=== PATIENT | female | born 1950 | race Caucasian/White ===

== ENCOUNTER 2019-03-24 09:09 | Observation (INO) | payer MEDICARE ==
[2019-03-24] MEDS ORDERED: NS 0.9% 1000 ML** 1,000 ML IV.FLUID IV ONE (09:33)
[2019-03-24] MEDS ORDERED: Piperacillin/Tazobac ADVAN(*) 3.375 GM in NS 0.9% 100 ML* 100 ML IVPB ONE (09:40)
[2019-03-24 10:18] LABS: ABS Eosinophils 0.1 10^3/ul (0-0.6); ABS Monocytes 0.3 10^3/ul (0-0.8); ABS Neutrophils 3.8 10^3/ul (1.5-7.7); Eosinophil % 1.4 %; Hematocrit 44 % (35-47); Hemoglobin 14.5 g/dL (12.0-16.0); Lymphocyte % 19.2 %; Mean Corpuscular HGB Conc 33 g/dL (31-36); Mean Corpuscular Hemoglobin 31 pg (27-31); Mean Corpuscular Volume 93 fL (80-97); Mean Platelet Volume 8.7 fL (7.4-10.4); Nucleated Red Blood Cells % 0.1; Platelet Count 98 10^3/uL (150-450); Red Blood Count 4.69 10^6 /uL (3.70-4.87); Red Cell Distribution Width 14 % (10-15); White Blood Count 5.2 10^3/uL (3.5-10.8)
[2019-03-24 10:26] LABS: Activated Partial Thrombo Time 35.8 seconds (26.0-38.0); INR 1.09 (0.82-1.09)
[2019-03-24 10:35] LABS: Albumin 3.9 g/dL (3.2-5.2); Calcium 9.3 mg/dL (8.6-10.3); Total Bilirubin 0.7 mg/dL (0.2-1.0)
[2019-03-24 10:42] LABS: Albumin/Globulin Ratio 1.1 (1-3); BUN/Creatinine Ratio 19.2 (8-20); C Reactive Protein 5.43 mg/L (<8.01); EGFR African American 95.6 (>60); Globulin 3.4 g/dL (2-4); Total Protein 7.3 g/dL (6.4-8.9)
[2019-03-24 11:08] LABS: Potassium 4.3 mmol/L (3.5-5.0)
--- NOTE | 2019-03-24 11:11 | ED ---
HPI Cardiac - HPI Summary HPI Summary: patient is a 68-year-old female presenting to the ED from Dr. Ferreira's office , oncology with request for admission for weakness, frequent falls, declining health and liver abscess. Dr. Mcdaniels and Dr. ford made aware. Patient states she feels well, denies any fevers, sweats, chills. She does endorse fatigue. - History of Current Complaint Chief Complaint: EDWeakness Stated Complaint: INFECTION IN LIVER PER PT Time Seen by Provider: 03/24/19 09:32 Hx Obtained From: Patient Onset/Duration: Started Hours Ago Timing: Constant Initial Severity: Moderate Current Severity: Moderate Pain Intensity: 0 Pain Scale Used: 0-10 Numeric Chest Pain Radiates: No Aggravating Factor(s): Nothing Alleviating Factor(s): Nothing Associated Signs and Symptoms: Positive: Negative - Additional Pertinent History Primary Care Physician: CYN - Allergy/Home Medications Allergies/Adverse Reactions: Allergies Allergy/AdvReac Type Severity Reaction Status Date / Time Sulfa (Sulfonamide Allergy Flushing Verified 03/24/19 09:19 Antibiotics) PMH/Surg Hx/FS Hx/Imm Hx Previously Healthy: No Endocrine/Hematology History: Denies: Hx Diabetes Cardiovascular History: Denies: Hx Hypertension, Hx Pacemaker/ICD GI History: Reports: Hx Gastroesophageal Reflux Disease - INDIGESTION ON MEDS, Hx Ulcer - HX OF History: Reports: Other Problems/Disorders - HX OF UTI, NONE NOW Denies: Hx Renal Disease Musculoskeletal History: Reports: Hx Arthritis - NECK, BACK Denies: Hx Osteoporosis Sensory History: Reports: Hx Contacts or Glasses - GLASSES Denies: Hx Hearing Aid Opthamlomology History: Reports: Hx Contacts or Glasses - GLASSES Psychiatric History: Reports: Hx Anxiety - ON MEDICATION, Hx Depression - ON MEDS Denies: Hx Panic Disorder - Cancer History Cancer Type, Location and Year: Lt BREAST /LYMPH NODES Hx Chemotherapy: Yes Hx Radiation Therapy: Yes - Surgical History Surgery Procedure, Year, and Place: 07/06/16LEFT BREAST CANCER- Lt LYMPH NODE BIOPSY-[facility]- [facility]STECT[facility]. 02/2016 - [facility]ERN[facility]. 01/2016 - POWERPORT [place] [facility] [place] 04/15/18). TUBAL LIGATION. GASTRIC BYPASS-[facility]. TONSILLECTOMY Hx Anesthesia Reactions: No - Immunization History Hx Pertussis Vaccination: No Immunizations Up to Date: Yes Infectious Disease History: No Infectious Disease History: Denies: Traveled Outside the [place] in Last 30 Days - Social History Occupation: Unemployed Lives: With Family Alcohol Use: Rare Hx Substance Use: No Substance Use Type: Reports: None Substance Use Comment - Amount & Last Used: Takes oxycondone for back pain Hx Tobacco Use: No Smoking Status (MU): Never Smoked Tobacco Review of Systems Negative: Fever, Chills, Fatigue, Skin Diaphoresis Negative: Palpitations, Chest Pain Negative: Shortness Of Breath, Cough Genitourinary: Negative Positive: no symptoms reported, see HPI Negative: Arthralgia, Myalgia Neurological: Negative All Other Systems Reviewed And Are Negative: Yes Physical Exam Triage Information Reviewed: Yes Vital Signs On Initial Exam: Initial Vitals Temp Pulse Resp BP Pulse Ox 98.5 F 95 16 128/82 95 03/24/19 09:13 03/24/19 09:13 03/24/19 09:13 03/24/19 09:13 03/24/19 09:13 Vital Signs Reviewed: Yes Appearance: Positive: Well-Appearing, Well-Nourished Skin: Positive: Warm, Skin Color Reflects Adequate Perfusion Head/Face: Positive: Normal Head/Face Inspection Eyes: Positive: EOMI, SADAF, Conjunctiva Clear Neck: Positive: Supple, No Lymphadenopathy Respiratory/Lung Sounds: Positive: Clear to Auscultation, Breath Sounds Present Cardiovascular: Positive: RRR, Pulses are Symmetrical in both Upper and Lower Extremities Musculoskeletal: Positive: Normal, Strength/ROM Intact Neurological: Positive: Sensory/Motor Intact, Alert, Oriented to Person Place, Time, Speech Normal Psychiatric: Positive: Affect/Mood Appropriate AVPU Assessment: Alert Diagnostics - Vital Signs Vital Signs Temp Pulse Resp BP Pulse Ox 03/24/19 10:30 62 114/80 100 03/24/19 10:00 69 96 03/24/19 09:58 71 109/78 96 03/24/19 09:33 97 03/24/19 09:26 83 137/79 94 03/24/19 09:25 85 03/24/19 09:13 98.5 F 95 16 128/82 95 - Laboratory Lab Results: Lab Results 03/24/19 03/24/19 03/24/19 Range/Units 09:55 09:55 09:55 WBC 5.2 (3.5-10.8) 10^3/uL RBC 4.69 (3.70-4.87) 10^6 /uL Hgb 14.5 (12.0-16.0) g/dL Hct 44 (35-47) % MCV 93 (80-97) fL MCH 31 (27-31) pg MCHC 33 (31-36) g/dL RDW 14 (10-15) % Plt Count 98 L (150-450) 10^3/uL MPV 8.7 (7.4-10.4) fL Neut % (Auto) 72.7 % Lymph % (Auto) 19.2 % [place] % (Auto) 6.2 % Eos % (Auto) 1.4 % Baso % (Auto) 0.5 % Absolute Neuts (auto) 3.8 (1.5-7.7) 10^3/ul Absolute Lymphs (auto) 1.0 (1.0-4.8) 10^3/ul Absolute Monos (auto) 0.3 (0-0.8) 10^3/ul Absolute Eos (auto) 0.1 (0-0.6) 10^3/ul Absolute Basos (auto) 0.0 (0-0.2) 10^3/ul Absolute Nucleated RBC 0.0 10^3/ul Nucleated RBC % 0.1 ESR Pending INR (Anticoag Therapy) 1.09 (0.82-1.09) APTT 35.8 (26.0-38.0) seconds Sodium 136 (135-145) mmol/L Potassium Pending Chloride 103 (101-111) mmol/L Carbon Dioxide 24 (22-32) mmol/L Anion Gap Pending BUN 14 (6-24) mg/dL Creatinine 0.73 (0.51-0.95) mg/dL Est GFR ( Amer) 95.6 (>60) Est GFR (Non-Af Amer) 79.0 (>60) BUN/Creatinine Ratio 19.2 (8-20) Glucose 127 H (70-100) mg/dL Lactic Acid (0.5-2.0) mmol/L Calcium 9.3 (8.6-10.3) mg/dL Total Bilirubin 0.70 (0.2-1.0) mg/dL AST Pending ALT 14 (7-52) U/L Alkaline Phosphatase 42 (34-104) U/L Troponin I 0.00 (<0.04) ng/mL C-Reactive Protein 5.43 (<8.01) mg/L Total Protein 7.3 (6.4-8.9) g/dL Albumin 3.9 (3.2-5.2) g/dL Globulin 3.4 (2-4) g/dL Albumin/Globulin Ratio 1.1 (1-3) 03/24/19 Range/Units 09:55 WBC (3.5-10.8) 10^3/uL RBC (3.70-4.87) 10^6 /uL Hgb (12.0-16.0) g/dL Hct (35-47) % MCV (80-97) fL MCH (27-31) pg MCHC (31-36) g/dL RDW (10-15) % Plt Count (150-450) 10^3/uL MPV (7.4-10.4) fL Neut % (Auto) % Lymph % (Auto) % [place] % (Auto) % Eos % (Auto) % Baso % (Auto) % Absolute Neuts (auto) (1.5-7.7) 10^3/ul Absolute Lymphs (auto) (1.0-4.8) 10^3/ul Absolute Monos (auto) (0-0.8) 10^3/ul Absolute Eos (auto) (0-0.6) 10^3/ul Absolute Basos (auto) (0-0.2) 10^3/ul Absolute Nucleated RBC 10^3/ul Nucleated RBC % ESR INR (Anticoag Therapy) (0.82-1.09) APTT (26.0-38.0) seconds Sodium (135-145) mmol/L Potassium Chloride (101-111) mmol/L Carbon Dioxide (22-32) mmol/L Anion Gap BUN (6-24) mg/dL Creatinine (0.51-0.95) mg/dL Est GFR ( Amer) (>60) Est GFR (Non-Af Amer) (>60) BUN/Creatinine Ratio (8-20) Glucose (70-100) mg/dL Lactic Acid 1.3 (0.5-2.0) mmol/L Calcium (8.6-10.3) mg/dL Total Bilirubin (0.2-1.0) mg/dL AST ALT (7-52) U/L Alkaline Phosphatase (34-104) U/L Troponin I (<0.04) ng/mL C-Reactive Protein (<8.01) mg/L Total Protein (6.4-8.9) g/dL Albumin (3.2-5.2) g/dL Globulin (2-4) g/dL Albumin/Globulin Ratio (1-3) Result Diagrams: 03/24/19 09:55 03/24/19 09:55 Lab Statement: Any lab studies that have been ordered have been reviewed, and results considered in the medical decision making process. Disposition - Course Course Of Treatment: During the course of treatment, the patient is evaluated for weakness, frequent falls and liver abscess. Discussed case with Dr. Ferreira who recommends admission to the hospital. Discussed case with Dr. Mcdaniels who recommends Zosyn at this time until blood cultures return. Discussed with Dr. cristiane Moses, hospitalist who agrees to admit for further evaluation. Labs are obtained which are unremarkable. Blood cultures pending. Zosyn and 2 L fluids given. Vital signs are stable while in the ED. - Differential Dx - Cardiopulmonary Differential Diagnoses - Cardiopulmonary: Other - Sepsis, liver abscess, declining health, malignancy, falls, weakness - Diagnoses Provider Diagnoses: Weakness - Physician Notifications Discussed Care Of Patient With: Marci Kennedy Instructed by Provider To: Admit As Inpatient Discharge - Sign-Out/Discharge Documenting (check all that apply): Patient Departure Patient Received Moderate/Deep Sedation with Procedure: No - Discharge Plan Condition: Fair Disposition: ADMITTED TO [facility] Referrals: Sade Bartlett NP [Primary Care Provider] - - Billing Disposition and Condition Condition: FAIR Disposition: Admitted to [facility]
[2019-03-24] MEDS ORDERED: Calcium Carbonate CHEW TAB* 500 MG (TUMS) PO PRN (11:48)
[2019-03-24] MEDS ORDERED: Albuterol HFA INHALER* 8 gm MDI INH PRN (11:48)
[2019-03-24 12:17] LABS: Urine Appearance Cloudy; Urine Bacteria Absent (Absent); Urine Bilirubin Negative (Negative); Urine Blood 1+ (Negative); Urine Color Yellow; Urine Glucose Negative (Negative); Urine Ketones Negative (Negative); Urine Nitrite Negative (Negative); Urine Protein Negative (Negative); Urine Red Blood Cell Trace(0-2/hpf) (Absent); Urine Specific Gravity 1.008 (1.010-1.030); Urine Squamous Epithelial Cell Present (Absent); Urine Urobilinogen Negative (Negative); Urine White Blood Cell 3+(>20/hpf) (Absent)
[2019-03-24 12:40] LABS: Erythrocyte Sed Rate 12 mm/Hr (0-29)
[2019-03-24] MEDS ORDERED: Zosyn per Pharmacy* NOTE FOLLOW UP SCH (13:00)
[2019-03-24] MEDS: oxyCODONE TAB* 5 MG TAB PO PRN ×2 (13:41→21:52)
[2019-03-24] MEDS: ZOSYN 3.375 GM Q8H per EXTENDED INFUSION IVPB SCH ×4 (13:47→21:52)
--- NOTE | 2019-03-24 13:54 | HP ---
CC: Sade Bartlett NP; Diane Ferreira MD; Jarad Lam MD * HISTORY AND PHYSICAL: DATE OF ADMISSION: 03/24/19 PRIMARY CARE PROVIDER: Sade Bartlett NP OTHER PROVIDERS: Diane Ferreira MD and Jarad Lam MD ATTENDING PHYSICIAN: Dr. Marci Gorman * (dictated by HEENA Turner) CHIEF COMPLAINT: Sent by Dr. Ferreira due to liver abscess. HISTORY OF PRESENT ILLNESS: Ms. Deal is a 68-year-old female with a past medical history of left breast invasive ductal carcinoma, diagnosed in 2016. She had a bilateral mastectomy, followed by chemotherapy which was finished in 2016. 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 She admits to frequent falls over the summer of 2018 due to neuropathy and left foot drop. She notes that she is being worked up by Dr. Lam for her neurological symptoms, but was in [place] from July to November. In July, she started to experience anorexia, weight loss, malaise, and progressive weakness. She notes that she started using a walker due to weakness , loss of balance and frequent falling. In November, she returned home from [place] and experienced worsening of anorexia and weight loss. She notes that she has lost approximately 15 pounds in the last 3 months and a total of approximately 60 pounds in last 3 years since her diagnosis of breast cancer. She denies chills, sweats, myalgias, or fever. She denies nausea, vomiting, or abdominal pain. She admits to anorexia, weight loss, malaise, muscle weakness that has been progressing. The patient has been seeing Dr. Ferreira and Dr. Lam for workup for both her neurologic and general symptoms. She has had a CT of the abdomen and pelvis which revealed cystic lesion of the liver and endometrial thickening. The patient received a liver ultrasound revealing a right lobe mass. Liver biopsy was performed which revealed abundant acute inflammatory exudate characteristics of acute abscess with no evidence of malignancy. Dr. Ferreira suggest that the patient go to the ER and be admitted for further workup and antibiotic treatment of liver abscess found on ultrasound. While in the emergency room, the patient received a full workup which included blood work revealing platelets of 98 with no other gross abnormality in CBC or CMP. She had a chest x-ray which was negative. EKG revealed normal sinus rhythm with a rate of 74. In the ER, she also received 1.8 L bolus of normal saline and a dose of piperacillin and tazobactam. Hospitalist team was asked to evaluate the patient for admission. PAST MEDICAL HISTORY: 1. Chronic back pain. 2. Depression. 3. Right retinal artery occlusion. 4. History of left breast invasive ductal carcinoma, status post bilateral mastectomy, chemotherapy. PAST SURGICAL HISTORY: 1. Gastric bypass. 2. Tonsillectomy. 3. Tubal ligation. 4. Hernia repair. 5. Bilateral mastectomies. HOME MEDICATIONS: 1. Acetaminophen 1000 mg p.o. q.6 hours p.r.n. pain. 2. Albuterol HFA inhaler 1 puff inhalation q.6 hours p.r.n. shortness of breath /wheeze. 3. Aspirin 81 mg p.o. q.a.m. 4. Calcium carbonate 2250 mg p.o. b.i.d. p.r.n. indigestion. 5. Cholecalciferol 3000 units p.o. daily. 6. Ibuprofen 400 mg p.o. q.6 hours p.r.n. pain. 7. Lansoprazole 15 mg p.o. daily. 8. Mirtazapine 15 mg p.o. at bedtime. 9. Robeline-3 fatty acid/fish oil 1 tab p.o. daily. 10. Oxycodone 30 mg p.o. q.6 hours p.r.n. pain. 11. Tamoxifen 20 mg p.o. daily. 12. Vitamin B complex 1 cap p.o. daily. DRUG ALLERGIES: SULFA - hives, itching. FAMILY HISTORY: Mother had diabetes mellitus and breast cancer, at the age of 60 from cancer. Father had heart disease. Brother had diabetes mellitus. Negative for CVA. SOCIAL HISTORY: The patient denies current or former smoking. She occasionally uses alcohol, less than weekly. She does not use any other drugs. 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 She lives with her . In the event that she is unable to make her own medical decisions, she has appointed her cousin, Zoey Lucas to be her surrogate decision maker. REVIEW OF SYSTEMS: A 10-point review of systems was performed and all the pertinent positives and negatives are in the HPI, all other systems are negative. PHYSICAL EXAMINATION GENERAL: Ms. Deal is a well-developed, well-nourished, normal weight, white woman, who appears older than her stated age. She is in no acute distress. She is pleasant and cooperative and appropriate. VITAL SIGNS: Temperature 98.5 temporal, heart rate 66, respiratory rate 16, oxygen saturation 92% on room air, blood pressure 145/111. HEENT: Visual castañeda grossly intact. PERRL. EOMI. Nonicteric sclerae. Hearing grossly intact. Oral mucous membranes are moist. There are no lesions. The pharynx is clear. RESPIRATORY: Symmetrical chest expansion without use of accessory muscles. Lungs clear to auscultation bilaterally without rhonchi, wheezes, or rubs. CARDIOVASCULAR: Regular rate and rhythm with S1 and S2 present without murmurs , rubs, clicks, or gallops. There is no JVD. ABDOMEN: Bowel sounds noted in all quadrants. The abdomen is flat. There is no tenderness to palpation throughout the abdomen including the right upper quadrant. There is no palpable hepatosplenomegaly. Negative Wesley's sign. MUSCULOSKELETAL: Full range of motion. EXTREMITIES: Skin is warm and smooth bilaterally without clubbing, cyanosis, or edema. Radial and pedal pulses are palpable. NEUROLOGIC: The patient is awake. She is alert and oriented x3. Cranial nerves are grossly intact. She is able to move all of her extremities. Motor strength is equal in upper and lower extremities. She has sensation intact bilaterally with left lower extremity sensation lesser than right lower extremity sensation. She has a left foot drop. SKIN: Grossly intact without lesions. Negative for splinter hemorrhage. DIAGNOSTIC STUDIES/LAB DATA: CBC is within normal limits except platelet count of 98. Chemistry is within normal limits except glucose 127. Liver ultrasound on 03/18/19, impression: Sonographic imaging of the right lobe of the liver indicates the right lobe mass identified on 03/06/19. CT exam is amenable to ultrasound-guided biopsy. Ultrasound-guided biopsy was performed 03/23/19. Cytology path report of the liver abscess reveals benign. Abundant acute inflammatory exudate characteristics of acute abscess. Reactive hepatocellular elements present. No evidence of malignancy identified. Chest x-ray within normal limits. EKG, rate of 74, normal sinus rhythm. ASSESSMENT AND PLAN: Ms. Deal is a 68-year-old female with a past medical history of invasive ductal carcinoma of the left breast, who presented to the ER today at the request of Dr. Ferreira due to findings of liver abscess. The patient will be admitted inpatient for: 1. Lives abscess: The patient has a liver abscess identified on CT and ultrasound. FNA was done on 03/23/19 revealing inflammatory exudate characteristics of abscess, no evidence of malignancy; cultures are pending. Currently, the patient denies fever, abdominal pain, nausea, vomiting. She does have anorexia, weight loss, and malaise. The patient has received 1 dose of piperacillin and tazobactam in the ER. She will be continued on this until cultures return and antibiotics can be narrowed. Infectious Disease has been consulted and notified. At this time, the patient will continue antibiotic treatment with consideration for drainage of the abscess in the future. 2. Weakness: Patient has continuing weakness that has worsened since July. She has neuropathy and left foot drop. This is being worked up by Dr. Lam. PT and OT have been ordered. She may need neurology consult inpatient. 2. Chronic back pain: Continue home medication of oxycodone. 3. FEN: The patient will be placed on heart-healthy diet. 4. Code status: Full code. 5. DVT prophylaxis: Based on the DVT risk assessment, the patient scores 2, placing her at moderate risk. She will be placed on SCDs for the time being as there may be need for surgical intervention. TIME SPENT: Approximately 60 minutes was spent on this admission, greater than half that time was spent with the patient, obtaining history, performing a physical, and reviewing the plan of care. The case has been reviewed with my attending, Dr. Gorman, who is in agreement with the plan of care. HEENA RIVERA [id number]/[facility] #: [id number] [place]
--- NOTE | 2019-03-24 18:23 | CONS ---
CONSULTATION REPORT: DATE OF CONSULT: 03/24/19 REQUESTING PROVIDER: HEENA Turner. CONSULTING SERVICE: Infectious disease. REASON FOR CONSULT: Liver abscess. IMPRESSION: 1. Left lobe of the liver loculated/cystic fluid collection, which was aspirated yesterday under ultrasound guidance. The histology came back inflammatory cells, no malignancy. The culture is growing E. coli and Strep intermedius. She had about a 20-pound weight loss in the preceding 8 weeks as well as anorexia and fatigue, which may be related to this collection. The collection was growing polymicrobial bowel terrell. These are sometimes related to underlying bowel pathology that would include malignancy. 2. More than a year of progressive muscle weakness and muscle wasting. Paraneoplastic workup has been negative, as has brain and spine imaging. 3. Breast cancer in 2016. 4. Allergy to SULFA MEDICINES. RECOMMENDATIONS: 1. Continue Zosyn. We will await her blood cultures and susceptibility data from the organisms in the liver biopsy. We will plan on about a month's worth of IV antibiotics. The collection is fairly small and I do not think that at this point placing a drain would benefit her much compared to antibiotics alone. 2. She will eventually need a colonoscopy and possibly further evaluation of the bowel for workup of underlying GI malignancy or other pathology that could lead to formation of this abscess. HISTORY OF PRESENT ILLNESS: This is a 68-year-old woman followed by Dr. Ferreira for breast cancer and then subsequently developed neurologic symptoms including upper and lower extremity weakness with muscle wasting in the hands, some slowed speech. She had had workup including brain imaging, neurology evaluation, lumbar puncture; all unrevealing. She had CT chest, abdomen, and pelvis looking for tumor at the end of February. On that scan, there was a septated cystic lesion 3.4 x 2.7 cm in the liver segment 4B. Dr. Ferreira had that aspirated yesterday by Dr. Aguilar. Purulent fluid came out, sent for culture, growing Strep and E. coli. I discussed the case with her last night. She had the patient come into the hospital. The patient did not get her message until this morning. She is glad to know that there is no malignant disease in her liver and otherwise has felt her usual self, which for the last 3 months has included 25-pound weight loss and anorexia, and on top of that, about a year and a half of weakness and muscle wasting as noted above. She has had no recent fevers, chills, or drenching sweats. She has not had trouble with diarrhea. She has had about a year of constipation requiring multiple agents to relieve the constipation. She had attributed that to chronic opioid use, but she has been taking those medicines for a few years and only had the constipation for about a year. No blood or black tarry stools. No mucus in the stool. PAST MEDICAL HISTORY: 1. Breast cancer, diagnosed in 2016, left breast, status post bilateral mastectomy and chemotherapy. 2. Low back pain. 3. Depression. 4. History of right retinal artery occlusion. PAST SURGICAL HISTORY: 1. Status post gastric bypass. 2. Status post tonsillectomy. 3. Status post tubal ligation. 4. Status post hernia repair. ALLERGIES: SULFA caused hives and itching. MEDICATIONS: 1. Albuterol. 2. Calcium. 3. Cholecalciferol. 4. Mirtazapine. 5. Oxycodone as needed. 6. Pantoprazole. 7. Zosyn 3.375 g IV every 8 hours. 8. Tamoxifen. 9. Vitamin B complex. SOCIAL HISTORY: She lives in [place] with her . She does not smoke or use illicit drugs. She is retired, had been a homemaker as well. FAMILY HISTORY: Mother had diabetes and breast cancer. Father at 60 from cancer. REVIEW OF SYSTEMS: A 12-point review was all negative, except as noted above in the history of present illness. PHYSICAL EXAM: Vital Signs: Temperature 36.5, heart rate 66, respiratory rate 20, blood pressure 120/72, oxygen saturation 96% on room air. In general, she is awake, not in distress. Neurologic: She is oriented x3. Follows all commands. Answers questions appropriately. Her speech is slowed. She has significant wasting in the muscles of the hands. HEENT: There is no conjunctival hemorrhage. Oropharynx without lesions. Neck is supple without mass. Heart is regular rate and rhythm without murmurs, rubs, or gallops. Lungs are clear to auscultation bilaterally. Abdomen: Soft, nontender, nondistended. There are bowel sounds present. Skin: There is no rash or splinter hemorrhage. Musculoskeletal: There is no spine tenderness to palpation or joint synovitis. DIAGNOSTIC STUDIES/LAB DATA: Laboratory Data: White blood cell count 5, hemoglobin 14, platelets 98. Creatinine is 0.7. Urinalysis shows blood and leukocyte esterase. INR was 1. Please see impression and recommendations outlined above, which I have discussed with Dr. Ferreira and HEENA Turner. [id number]/[facility] #: [id number] MTDD
[2019-03-24] MEDS ORDERED: Mirtazapine TAB* 15 MG PO SCH (21:00)
[2019-03-25] MEDS: ZOSYN 3.375 GM Q8H per EXTENDED INFUSION IVPB SCH ×2 (05:37)
[2019-03-25] MEDS: oxyCODONE TAB* 5 MG TAB PO PRN (05:42)
[2019-03-25 07:43] LABS: ABS Eosinophils 0.2 10^3/ul (0-0.6); ABS Lymphocytes 0.7 10^3/ul (1.0-4.8); ABS Monocytes 0.3 10^3/ul (0-0.8); ABS Neutrophils 2.8 10^3/ul (1.5-7.7); Eosinophil % 4.1 %; Hematocrit 38 % (35-47); Hemoglobin 12.7 g/dL (12.0-16.0); Lymphocyte % 18.4 %; Mean Corpuscular HGB Conc 34 g/dL (31-36); Mean Corpuscular Hemoglobin 32 pg (27-31); Mean Corpuscular Volume 94 fL (80-97); Mean Platelet Volume 9.2 fL (7.4-10.4); Platelet Count 87 10^3/uL (150-450); Red Blood Count 4.03 10^6 /uL (3.70-4.87); Red Cell Distribution Width 14 % (10-15); White Blood Count 4.1 10^3/uL (3.5-10.8)
[2019-03-25 07:49] LABS: Albumin 3.3 g/dL (3.2-5.2); Albumin/Globulin Ratio 1.2 (1-3); BUN/Creatinine Ratio 15.2 (8-20); Calcium 8.5 mg/dL (8.6-10.3); EGFR African American 107.4 (>60); EGFR Non-African American 88.8 (>60); Globulin 2.7 g/dL (2-4); Potassium 3.9 mmol/L (3.5-5.0); Total Bilirubin 0.4 mg/dL (0.2-1.0)
--- NOTE | 2019-03-25 08:26 | PN ---
Subjective Date of Service: 03/25/19 Interval History: Admitted yesterday for liver abscess, started on IV antibiotics, and ID consulted. Remains afebrile, with no chills. Has no abdominal pain, no nausea, no vomiting. Family History: Unchanged from Admission Social History: Unchanged from Admission Past Medical History: Unchanged from Admission Objective Active Medications: Albuterol (Ventolin Hfa Inhaler*) 1 puff INH Q6H PRN PRN Reason: SHORTNESS OF BREATH Calcium Carbonate (Tums*) 2,000 mg PO BID PRN PRN Reason: INDIGESTION Cholecalciferol (Vitamin D Tab*) 2,000 units PO DAILY [facility] Fish Oil (Fish Oil (Nf)) 1,000 mg PO DAILY [facility]; Protocol Piperacillin Sod/Tazobactam (Sod 3.375 gm/ Sodium Chloride) 100 mls @ 25 mls/ hr IVPB Q8H [facility] Last Admin: 03/25/19 05:37 Dose: 25 mls/hr Mirtazapine (Remeron Tab*) 15 mg PO BEDTIME [facility] Last Admin: 03/24/19 21:52 Dose: 15 mg Oxycodone HCl (Roxycodone Tab*) 30 mg PO Q6H PRN PRN Reason: PAIN Last Admin: 03/25/19 05:42 Dose: 30 mg Pantoprazole Sodium (Protonix Tab*) 40 mg PO DAILY [facility] Pharmacy Consult (Zosyn Per Pharmacy*) 1 note FOLLOW UP .ZOSYN PER PHARMACY [facility] Tamoxifen Citrate (Nolvadex*) 20 mg PO DAILY [facility] Vitamin B Complex/Vitamin E (B Complex-50*) 1 tab PO DAILY [facility] Vital Signs - 8 hr 03/25/19 03/25/19 03/25/19 01:18 02:26 05:42 Temperature 97.6 F Pulse Rate 63 Respiratory 16 18 16 Rate Blood Pressure 131/73 (mmHg) O2 Sat by Pulse 99 Oximetry 03/25/19 07:15 Temperature 98.6 F Pulse Rate 61 Respiratory 16 Rate Blood Pressure 102/64 (mmHg) O2 Sat by Pulse 97 Oximetry Oxygen Devices in Use Now: None Appearance: Lying in bed, not in distress Eyes: PERRLA Respiratory: Clear to Auscultation Abdominal: - - Bowel sounds normoactive, soft, non-tender, non-distended Skin: No Rash or Ulcers Neurological: Alert and Oriented x 3 Result Diagrams: 03/25/19 06:50 03/25/19 06:50 Additional Lab and Data: Lab Results 03/24/19 03/24/19 03/24/19 Range/Units 09:55 09:55 09:55 WBC 5.2 (3.5-10.8) 10^3/uL RBC 4.69 (3.70-4.87) 10^6 /uL Hgb 14.5 (12.0-16.0) g/dL Hct 44 (35-47) % MCV 93 (80-97) fL MCH 31 (27-31) pg MCHC 33 (31-36) g/dL RDW 14 (10-15) % Plt Count 98 L (150-450) 10^3/uL MPV 8.7 (7.4-10.4) fL Neut % (Auto) 72.7 % Lymph % (Auto) 19.2 % [place] % (Auto) 6.2 % Eos % (Auto) 1.4 % Baso % (Auto) 0.5 % Absolute Neuts (auto) 3.8 (1.5-7.7) 10^3/ul Absolute Lymphs (auto) 1.0 (1.0-4.8) 10^3/ul Absolute Monos (auto) 0.3 (0-0.8) 10^3/ul Absolute Eos (auto) 0.1 (0-0.6) 10^3/ul Absolute Basos (auto) 0.0 (0-0.2) 10^3/ul Absolute Nucleated RBC 0.0 10^3/ul Nucleated RBC % 0.1 ESR Pending INR (Anticoag Therapy) 1.09 (0.82-1.09) APTT 35.8 (26.0-38.0) seconds Sodium 136 (135-145) mmol/L Potassium Pending Chloride 103 (101-111) mmol/L Carbon Dioxide 24 (22-32) mmol/L Anion Gap Pending BUN 14 (6-24) mg/dL Creatinine 0.73 (0.51-0.95) mg/dL Est GFR ( Amer) 95.6 (>60) Est GFR (Non-Af Amer) 79.0 (>60) BUN/Creatinine Ratio 19.2 (8-20) Glucose 127 H (70-100) mg/dL Lactic Acid (0.5-2.0) mmol/L Calcium 9.3 (8.6-10.3) mg/dL Total Bilirubin 0.70 (0.2-1.0) mg/dL AST Pending ALT 14 (7-52) U/L Alkaline Phosphatase 42 (34-104) U/L Troponin I 0.00 (<0.04) ng/mL C-Reactive Protein 5.43 (<8.01) mg/L Total Protein 7.3 (6.4-8.9) g/dL Albumin 3.9 (3.2-5.2) g/dL Globulin 3.4 (2-4) g/dL Albumin/Globulin Ratio 1.1 (1-3) 03/24/19 Range/Units 09:55 WBC (3.5-10.8) 10^3/uL RBC (3.70-4.87) 10^6 /uL Hgb (12.0-16.0) g/dL Hct (35-47) % MCV (80-97) fL MCH (27-31) pg MCHC (31-36) g/dL RDW (10-15) % Plt Count (150-450) 10^3/uL MPV (7.4-10.4) fL Neut % (Auto) % Lymph % (Auto) % [place] % (Auto) % Eos % (Auto) % Baso % (Auto) % Absolute Neuts (auto) (1.5-7.7) 10^3/ul Absolute Lymphs (auto) (1.0-4.8) 10^3/ul Absolute Monos (auto) (0-0.8) 10^3/ul Absolute Eos (auto) (0-0.6) 10^3/ul Absolute Basos (auto) (0-0.2) 10^3/ul Absolute Nucleated RBC 10^3/ul Nucleated RBC % ESR INR (Anticoag Therapy) (0.82-1.09) APTT (26.0-38.0) seconds Sodium (135-145) mmol/L Potassium Chloride (101-111) mmol/L Carbon Dioxide (22-32) mmol/L Anion Gap BUN (6-24) mg/dL Creatinine (0.51-0.95) mg/dL Est GFR ( Amer) (>60) Est GFR (Non-Af Amer) (>60) BUN/Creatinine Ratio (8-20) Glucose (70-100) mg/dL Lactic Acid 1.3 (0.5-2.0) mmol/L Calcium (8.6-10.3) mg/dL Total Bilirubin (0.2-1.0) mg/dL AST ALT (7-52) U/L Alkaline Phosphatase (34-104) U/L Troponin I (<0.04) ng/mL C-Reactive Protein (<8.01) mg/L Total Protein (6.4-8.9) g/dL Albumin (3.2-5.2) g/dL Globulin (2-4) g/dL Albumin/Globulin Ratio (1-3) Assess/Plan/Problems-Billing Assessment: 68 year old Female with history of breast cancer, right retinal artery occlusion admitted with liver abscess. - Patient Problems (1) Liver abscess Current Visit: Yes Status: Acute Code(s): K75.0 - ABSCESS OF LIVER SNOMED Code(s): 68338381 Comment: Continue zosyn s/p drainage, grew E.coli and Strep intermedius- sensitivities pending. ID recommended 4 weeks IV antibiotics. (2) Thrombocytopenia Current Visit: Yes Status: Acute Code(s): D69.6 - THROMBOCYTOPENIA, UNSPECIFIED SNOMED Code(s): 039630820 Comment: no evidence of bleeding, could be due to liver abscess, will monitor (3) History of breast cancer Current Visit: Yes Status: Acute Code(s): Z85.3 - PERSONAL HISTORY OF MALIGNANT NEOPLASM OF BREAST SNOMED Code(s): 172124490 Comment: on tamoxifen. (4) DVT prophylaxis Current Visit: Yes Status: Acute Code(s): Z29.9 - ENCOUNTER FOR PROPHYLACTIC MEASURES, UNSPECIFIED SNOMED Code(s): 050751557 Comment: SCD Has thrombocytopenia- continue SCD. Status and Disposition: Needs IV antbiotics, sensitivities pending.
[2019-03-25] MEDS ORDERED: oxyCODONE TAB* 5 MG TAB PO PRN (08:27)
[2019-03-25] MEDS ORDERED: Cholecalciferol TAB* 1000 UNITS PO SCH (09:00)
[2019-03-25] MEDS ORDERED: FATTY ACIDS PO SCH (09:00)
[2019-03-25] MEDS ORDERED: Vitamin B Complex TAB PO SCH (09:00)
[2019-03-25] MEDS ORDERED: Pantoprazole TAB * 40 MG TAB PO SCH (09:00)
[2019-03-25] MEDS ORDERED: Tamoxifen TAB* 10 MG PO SCH (09:00)
[2019-03-25] MEDS ORDERED: OMEGA PO SCH (09:00)
--- NOTE | 2019-03-25 09:35 | PN ---
Progress Note - Progress Note Date of Service: 03/25/19 SOAP: Subjective: CC: liver abscess HPI: 68 year old woman with cystic liver lesion, had US guided aspiration, purulent fluid . No fever or chills, has had anorexia and worsening weight loss last 6 weeks. Constipated for a year. Feels ok today. Appetite is a little better. Objective: Vital Signs Temp 37.0 C 03/25/19 07:15 Pulse 61 03/25/19 07:15 Resp 16 03/25/19 09:15 BP 102/64 03/25/19 07:15 Pulse Ox 97 03/25/19 07:15 Intake & Output 03/24/19 03/25/19 03/25/19 18:59 06:59 18:59 Intake Total 860 370 Balance 860 370 Weight 140 lb Intake: IV Fluids 60 30 NS (0.9%) 60 30 IVPB 200 100 ABX - ZOSYN 200 100 Oral 600 240 Other: Estimated Void Large Date of Last Bowel 03/25/19 Movement # Bowel Movements 1 # Voids 2 Gen:awake, no distress HEENT: no thrush Heart:RRR no murmur Lungs:CTA BL Abd:+BS NTND soft, no RUQ pain Skin: no rash Laboratory Results - last 24 hr 03/24/19 03/24/19 03/24/19 09:55 09:55 09:55 WBC 5.2 RBC 4.69 Hgb 14.5 Hct 44 MCV 93 MCH 31 MCHC 33 RDW 14 Plt Count 98 L MPV 8.7 Neut % (Auto) 72.7 Lymph % (Auto) 19.2 [place] % (Auto) 6.2 Eos % (Auto) 1.4 Baso % (Auto) 0.5 Absolute Neuts (auto) 3.8 Absolute Lymphs (auto) 1.0 Absolute Monos (auto) 0.3 Absolute Eos (auto) 0.1 Absolute Basos (auto) 0.0 Absolute Nucleated RBC 0.0 Nucleated RBC % 0.1 ESR 12 Hem Pathologist Commnt INR (Anticoag Therapy) 1.09 APTT 35.8 Sodium 136 Potassium 4.3 Chloride 103 Carbon Dioxide 24 Anion Gap 9 BUN 14 Creatinine 0.73 Est GFR ( Amer) 95.6 Est GFR (Non-Af Amer) 79.0 BUN/Creatinine Ratio 19.2 Glucose 127 H Hemoglobin A1c Lactic Acid Calcium 9.3 Total Bilirubin 0.70 AST 25 ALT 14 Alkaline Phosphatase 42 Troponin I 0.00 C-Reactive Protein 5.43 Total Protein 7.3 Albumin 3.9 Globulin 3.4 Albumin/Globulin Ratio 1.1 Urine Color Urine Appearance Urine pH Ur Specific [place] Urine Protein Urine Ketones Urine Blood Urine Nitrate Urine Bilirubin Urine Urobilinogen Ur Leukocyte Esterase Urine WBC (Auto) Urine RBC (Auto) Ur Squamous Epith Cells Urine Bacteria Urine Glucose 03/24/19 03/24/19 03/24/19 09:55 11:57 13:39 WBC RBC Hgb Hct MCV MCH MCHC RDW Plt Count MPV Neut % (Auto) Lymph % (Auto) [place] % (Auto) Eos % (Auto) Baso % (Auto) Absolute Neuts (auto) Absolute Lymphs (auto) Absolute Monos (auto) Absolute Eos (auto) Absolute Basos (auto) Absolute Nucleated RBC Nucleated RBC % ESR Hem Pathologist Commnt INR (Anticoag Therapy) APTT Sodium Potassium Chloride Carbon Dioxide Anion Gap BUN Creatinine Est GFR ( Amer) Est GFR (Non-Af Amer) BUN/Creatinine Ratio Glucose Hemoglobin A1c Lactic Acid 1.3 1.3 Calcium Total Bilirubin AST ALT Alkaline Phosphatase Troponin I C-Reactive Protein Total Protein Albumin Globulin Albumin/Globulin Ratio Urine Color Yellow Urine Appearance Cloudy Urine pH 5.0 Ur Specific [place] 1.008 L Urine Protein Negative Urine Ketones Negative Urine Blood 1+ A Urine Nitrate Negative Urine Bilirubin Negative Urine Urobilinogen Negative Ur Leukocyte Esterase 3+ A Urine WBC (Auto) 3+(>20/hpf) A Urine RBC (Auto) Trace(0-2/hpf) Ur Squamous Epith Cells Present A Urine Bacteria Absent Urine Glucose Negative 03/25/19 03/25/19 03/25/19 06:50 06:50 06:50 WBC 4.1 RBC 4.03 Hgb 12.7 Hct 38 MCV 94 MCH 32 H MCHC 34 RDW 14 Plt Count 87 L MPV 9.2 Neut % (Auto) 68.7 Lymph % (Auto) 18.4 [place] % (Auto) 7.8 Eos % (Auto) 4.1 Baso % (Auto) 1.0 Absolute Neuts (auto) 2.8 Absolute Lymphs (auto) 0.7 L Absolute Monos (auto) 0.3 Absolute Eos (auto) 0.2 Absolute Basos (auto) 0.0 Absolute Nucleated RBC 0.0 Nucleated RBC % 0.0 ESR Hem Pathologist Commnt INR (Anticoag Therapy) APTT Sodium 142 Potassium 3.9 Chloride 110 Carbon Dioxide 30 Anion Gap 2 BUN 10 Creatinine 0.66 Est GFR ( Amer) 107.4 Est GFR (Non-Af Amer) 88.8 BUN/Creatinine Ratio 15.2 Glucose 90 Hemoglobin A1c 5.2 Lactic Acid Calcium 8.5 L Total Bilirubin 0.40 AST 20 ALT 14 Alkaline Phosphatase 37 Troponin I C-Reactive Protein Total Protein 6.0 L Albumin 3.3 Globulin 2.7 Albumin/Globulin Ratio 1.2 Urine Color Urine Appearance Urine pH Ur Specific [place] Urine Protein Urine Ketones Urine Blood Urine Nitrate Urine Bilirubin Urine Urobilinogen Ur Leukocyte Esterase Urine WBC (Auto) Urine RBC (Auto) Ur Squamous Epith Cells Urine Bacteria Urine Glucose Assessment: 1. Polymicrobial liver abscess, could be related to underlying bowel pathology 2. Hx breast cancer on tamoxifen 3. Neuropathy, slowed speech, muscle wasting, negative workup to date Plan: 1. Change zosyn to ceftriaxone 1 gm daily and flagyl 500 mg by mouth twice daily for 28 days w weekly cbc, cmp, crp; fu with me 1-[address] 3-4 weeks, colonoscopy as outpatient 45 minutes face to face >50% in counseling with patient and her sister regarding next steps in treatment
[2019-03-25] MEDS ORDERED: metroNIDAZOLE IV 500 MG/100ML* 500 MG/100 ML BAG IVPB SCH (10:00)
[2019-03-25] MEDS ORDERED: cefTRIAXone(*) 1 GM in NS 0.9% 50 ML* 50 ML IVPB SCH (14:00)
--- NOTE | 2019-03-25 14:37 | DS ---
CC: Sade Bartlett NP; Dr. Diane Ferreira; Dr. Jarad Lam; Dr. Geraldo Argueta ; Dr. Marito Smith DISCHARGE SUMMARY: DATE OF ADMISSION: 03/24/19 DATE OF DISCHARGE: 03/25/19 DISCHARGE DISPOSITION: The patient is to be discharged home. REASON FOR ADMISSION: Liver abscess, sent by Dr. Ferreira. ADMISSION DIAGNOSIS: Liver abscess. DISCHARGE DIAGNOSES: 1. Liver abscess. 2. Weakness. 3. Chronic back pain. 4. History of invasive ductal carcinoma. 5. Depression. 6. Right retinal artery occlusion. 7. Thrombocytopenia HOSPITAL COURSE: Ms. Deal is a 68-year-old female with history of left breast invasive ductal carcinoma, status post bilateral mastectomy, chemotherapy; bilateral upper and lower extremity neuropathy, who was admitted to the hospital because of liver abscess. Liver biopsy prior to coming to ER was done , which had revealed abundant and acute inflammatory exudate characteristic of an acute abscess with no evidence of malignancy. The patient was sent to the emergency room for IV antibiotics and further evaluation and care. The patient was started on broad-spectrum antibiotic, Zosyn. Dr. Geraldo Argueta, Infectious Diseases, was consulted, subsequently the results of the abscess revealed that it was growing E. coli as well as Strep intermedius. They were sensitive to Rocephin. The patient was evaluated and seen by Dr. Geraldo Argueta, recommendation made for 4 weeks of IV antibiotics as well as IV Rocephin, p.o. Flagyl for 4 weeks. The patient will also need evaluation by Gastroenterology including colonoscopy as an outpatient upon completion of the antibiotics to determine the exact etiology of her getting the liver abscess. On admission, hemoglobin was 14.5, white cell count of 5.2, platelets of 98. BUN was 10, creatinine of 0.66. The patient remained afebrile through the hospital course. Arrangements were made for the patient to get a PICC line as an outpatient as well as start the infusion of IV Rocephin as an outpatient starting tomorrow. Also, Dr. Argueta's office will be arranging a followup appointment in his office as well the patient will require a repeat CT in 3 to 4 weeks as well as weekly CBC, CMP, CRP, and follow up with Dr. Argueta in 1 to 2 weeks. DISCHARGE CONDITION: Fair. DISCHARGE DISPOSITION: The patient is to be discharged home. DISCHARGE MEDICATIONS: Include: 1. Rocephin 1 g daily for the next 4 weeks. 2. Flagyl 500 mg twice a day for the next 28 days. Continuation of home medications, which include: 1. Albuterol 1 puff inhaled every 6 hours. 2. Calcium carbonate 2250 mg twice a day. 3. Cholecalciferol 2000 units daily. 4. Lansoprazole 15 mg daily. 5. Mirtazapine 15 mg at bedtime. 6. Shevlin-3 fatty acid 1 each daily. 7. Oxycodone 30 mg every 6 hours as needed for pain. 8. Tamoxifen 20 mg daily. 9. Vitamin B complex 1 capsule daily. DISCHARGE INSTRUCTIONS: The patient is advised to return to the emergency room for fever and chills, abdominal pain, or nausea and vomiting. The patient needs PICC line placement on 03/26/19 to start IV Rocephin [facility]. The patient's instructions have been given. Home care referral has also been made. [id number]/[facility] #: [id number] [place]
[2019-03-25 15:47] VITALS: BP 114/74
== END 2019-03-25 15:40 | disposition home or self-care (01) ==
LOC: ED 09:09 → INTOOBSV 11:46 → MED 11:46
PROVIDERS: ADMIT Internal Medicine; ATTEND Internal Medicine
DX: K75.0 Abscess of liver (principal); R53.1 Weakness; M54.9 Dorsalgia, unspecified; Z91.81 History of falling; Z88.2 Allergy status to sulfonamides; K21.9 Gastro-esophageal reflux disease without esophagitis; Z85.3 Personal history of malignant neoplasm of breast; F32.9 Major depressive disorder, single episode, unspecified; H34.9 Unspecified retinal vascular occlusion; D69.6 Thrombocytopenia, unspecified; G62.9 Polyneuropathy, unspecified
CPT/HCPCS: 36415; 71046; 80053; 81003; 81015; 83036; 83605; 84484; 85025; 85060; 85610; 85652; 85730; 86140; 87040; 87086; 93005; 96365; 96375; 99284; A9270-GY; G0378; G8978-GP-CK; G8979-GP-CI; G8987-GO-CK; G8988-GO-CJ; J0696; J2543; J3490

== ENCOUNTER 2019-05-25 13:58 | Inpatient (IN) | payer MEDICARE ==
[2019-05-25] MEDS ORDERED: Bupivacaine 0.25% EPI 200,000* 30 ML SDV ONE (17:45)
[2019-05-25] MEDS ORDERED: Propofol* 10 MG/ML 20 ML BTL ONE (18:02)
[2019-05-25] MEDS ORDERED: Lidocaine 2% PF * 5 ML VIAL ONE (18:02)
[2019-05-25] MEDS ORDERED: fentaNYL* 50 MCG/ML 2 ML VIAL (100 MCG VIAL) ONE ×2 (18:07→20:23)
[2019-05-25] MEDS ORDERED: Phenylephrine 10 MG/ML VIAL* 1 ML VIAL ONE (18:15)
[2019-05-25] MEDS ORDERED: ceFAZolin 2 GM in NS PREMIX(*) 2 GM/100 ML BAG IVPB ONE (18:23)
[2019-05-25] MEDS ORDERED: Ondansetron INJ* 2 MG/ML VIAL IV PRN ×2 (19:21→19:29)
[2019-05-25] MEDS ORDERED: HYDROmorphone INJ1* 1 MG/ML SYRINGE IV SLOW PU PRN (19:21)
--- NOTE | 2019-05-25 19:21 | OP ---
Operative Report - Blank - Operative Report Date of Operation: 05/25/19 Note: OPERATIVE REPORT Pre-op: Malnutrition, dysphagia Post-Op: Same Procedure:Open placement of 20 F MILTON gastrostomy tube Surgeon: MD Marian Asst: none Anes: general with local , Dr. Grace IVF:min EBL:min Specimen: none Drain: None Wound: 1 Findings: Normal stomach To PACU
[2019-05-25] MEDS ORDERED: Docusate CAP* 100 MG PO PRN (19:24)
[2019-05-25] MEDS ORDERED: Metoprolol Tartrate IV* 1 MG/ML 5 ML VIAL ONE (19:28)
[2019-05-25] MEDS ORDERED: Naloxone* 0.4 MG/ML 1 ML VIAL IV PRN (19:29)
[2019-05-25] MEDS ORDERED: fentaNYL* 50 MCG/ML 2 ML VIAL (100 MCG VIAL) IV PRN (19:29)
[2019-05-25] MEDS ORDERED: Ketorolac INJ* 30 MG/ML 1 ML VIAL IV PRN (19:29)
[2019-05-25] MEDS ORDERED: Metoprolol Tartrate IV* 1 MG/ML 5 ML VIAL IV ONE (19:29)
[2019-05-25] MEDS ORDERED: Acetaminophen IV 1GM/100ML * 1,000 MG/100 ML VIAL IVPB ONE (19:29)
[2019-05-25] MEDS ORDERED: NS 0.9% 1000 ML** 1,000 ML IV SCH (19:30)
[2019-05-25] MEDS ORDERED: Ketorolac INJ* 30 MG/ML 1 ML VIAL ONE (19:32)
[2019-05-25] MEDS ORDERED: hydrALAZINE IV* 20 MG/ML VIAL IV SLOW PU PRN (19:45)
[2019-05-25] MEDS ORDERED: hydrALAZINE IV* 20 MG/ML VIAL ONE (19:45)
[2019-05-25] MEDS ORDERED: Ondansetron INJ* 2 MG/ML VIAL ONE (20:23)
[2019-05-25] MEDS: Pantoprazole TAB * 40 MG TAB PO SCH (22:12)
[2019-05-25] MEDS: RILUZOLE 50 MG PO SCH (22:12)
[2019-05-25] MEDS: Dronabinol CAP* 2.5 MG PO SCH (22:26)
[2019-05-25] MEDS: oxyCODONE TAB* 5 MG TAB PO PRN (22:26)
--- NOTE | 2019-05-26 01:51 | OP ---
DATE OF OPERATION: 05/25/19 - ROOM #349 DATE OF : 48 SURGEON: Miguel Fonseca MD. SENIOR SUPPORT ENGINEER: None. ANESTHESIOLOGIST: Dr. Grace. ANESTHESIA: General with local. PRE-OP DIAGNOSES: Dysphagia and malnutrition. POST-OP DIAGNOSIS: Dysphagia and malnutrition. OPERATIVE PROCEDURE: Insertion of open Naresh gastrostomy using a #20 [place] MILTON gastrostomy tube. ESTIMATED BLOOD LOSS: Minimal. WOUND CLASSIFICATION: I. COMPLICATIONS: None. SPECIMENS: None. DRAINS: None. BRIEF HISTORY/INDICATIONS: Ms. Priyanka Deal is a 68-year-old woman with a history of ALS who has undergone a laparoscopic gastric bypass operation several years ago. She is, unfortunately, having difficulty with adequate caloric intake and in light of her previous surgical history is not a candidate for a percutaneous endoscopic gastrostomy tube. An open gastrostomy tube has been requested. The patient's history, physical exam, and CT scan results and workup were all reviewed. She is now to undergo a open gastrostomy tube. The procedure was discussed with her and her family and the risks of, but not limited to, bleeding , infection, intraabdominal abscess formation, injury to peritoneal and retroperitoneal structures, catheter malfunction, discomfort, blood clot risk, and anesthesia risks were all explained. DESCRIPTION OF PROCEDURE: Written informed consent was obtained, the patient received 2 g of IV Ancef preoperatively, the abdomen was marked with indelible ink, and she was taken to the operating room and placed in the supine position. Sequential compression devices and warming blanket were applied. General anesthesia was administered. The abdomen was prepped and draped in the usual sterile fashion. Time-out verification was completed. Initially 0.5% Marcaine was infiltrated in the midline of the abdomen about two - thirds of the way between the umbilicus and the xiphoid and a vertical incision was made, carried down through the midline fascia and the peritoneal cavity was entered under direct vision. Here I was able to identify the anterior surface of the stomach, and this was grasped with a Norris and brought up and delivered into the field. I assured myself that we were well proximal to the pylorus and a 2-0 silk pursestring was placed in the anterior wall. Next a 20-Kazakh gastrostomy tube was passed through a stab wound several centimeters to the left of this incision and brought through the abdominal wall. The gastrotomy was then performed with a cautery, opened up the stomach, and the catheter was inserted into the gastric lumen without difficulty and the balloon was filled with approximately 9 to 10 cc of saline. The pursestring suture was then tightened down around the catheter. Four separate 2-0 silk sutures were then used to suture the anterior stomach to the underside of the abdominal wall with horizontal mattress sutures and these were tied down and the stomach was brought up to the anterior abdominal wall along with the balloon. The flange was placed in the appropriate position at the skin level and sutured to the skin with two separate 2-0 silk sutures as well. Hemostasis was assured. The midline fascia was closed with interrupted # 1 Vicryl suture. The skin was approximated with a stapling device. Dry sterile dressings were applied. The patient tolerated the procedure well, was returned to the recovery room in stable condition. [id number]/[facility] #: [id number] [place]
[2019-05-26] MEDS: oxyCODONE TAB* 5 MG TAB PO PRN ×4 (04:57→23:10)
[2019-05-26] MEDS ORDERED: LACTOSE REDUCED FOOD PO SCH (07:30)
[2019-05-26] MEDS: Acetaminophen TAB* 325 MG PO PRN ×2 (08:01→18:27)
[2019-05-26] MEDS: Pantoprazole TAB * 40 MG TAB PO SCH ×2 (08:55→23:09)
[2019-05-26] MEDS: Dronabinol CAP* 2.5 MG PO SCH ×2 (08:55→23:10)
[2019-05-26] MEDS: Tamoxifen TAB* 10 MG PO SCH (08:56)
[2019-05-26] MEDS: RILUZOLE 50 MG PO SCH ×2 (08:56→23:32)
--- NOTE | 2019-05-26 11:27 | PN ---
Progress Note - Progress Note Date of Service: 05/26/19 SOAP: Subjective: Doing well-minimal abdominal pain, has usual back and hip pain No N/V Objective: Temp Pulse Resp BP Pulse Ox 98.1 F 94 16 130/79 93 05/26/19 11:08 05/26/19 11:08 05/26/19 11:08 05/26/19 11:08 05/26/19 11:08 PEX: Comfortable Lungs are clear Abd is soft and non-distended. Bowel sounds present, dressing intact, G-tube in place Assessment: POD#1 s/p gtube placement Plan: Start tube feeds Discharge planning-hopeful d/c tomorrow Nutrition consult.
[2019-05-27] MEDS: Acetaminophen TAB* 325 MG PO PRN ×2 (00:48→07:48)
[2019-05-27] MEDS: oxyCODONE TAB* 5 MG TAB PO PRN ×2 (05:23→11:42)
[2019-05-27] MEDS: Pantoprazole TAB * 40 MG TAB PO SCH (09:32)
[2019-05-27] MEDS: Dronabinol CAP* 2.5 MG PO SCH (09:32)
[2019-05-27] MEDS: Tamoxifen TAB* 10 MG PO SCH (09:36)
[2019-05-27] MEDS: RILUZOLE 50 MG PO SCH (09:37)
[2019-05-27 11:56] VITALS: BP 135/72
--- NOTE | 2019-05-27 15:20 | PN ---
Progress Note - Progress Note Date of Service: 05/27/19 Note: (late entry; patient seen ~ 1100) S: doing well; no problems reported w/ G-tube feeds; pain controlled w/ usual oxycodone O: Vital Signs - 8 hr 05/27/19 05/27/19 05/27/19 07:55 08:00 09:30 Temperature 98.4 F Pulse Rate 68 Respiratory 18 20 16 Rate Blood Pressure 147/87 (mmHg) O2 Sat by Pulse 99 97 Oximetry 05/27/19 05/27/19 05/27/19 09:32 11:42 11:55 Temperature 98 F Pulse Rate 72 Respiratory 16 24 16 Rate Blood Pressure 135/72 (mmHg) O2 Sat by Pulse 97 Oximetry 05/27/19 13:01 Temperature Pulse Rate Respiratory 20 Rate Blood Pressure (mmHg) O2 Sat by Pulse Oximetry Intake and Output Last 24 Hours 05/25/19 05/26/19 05/27/19 05/28/19 06:59 06:59 06:59 06:59 Intake Total 1200 550 480 Output Total 1450 500 Balance -250 50 480 Weight 123 lb 4 oz Intake: IV Fluids 1200 LR 1200 Oral 0 550 480 Output: Urine 1450 500 Other: Estimated Void Medium # Voids 1 Gen: appears comfortable; NAD Abd: +BS; G-tube dressing clean and dry; soft; mild billy-wound tenderness A: s/p open gastrostomy tube placement P: ready for d/c home; instructions reviewed; see d/c plan
--- NOTE | 2019-05-27 22:04 | DS ---
CC: CRISTIN Harvey, [place], [place]; Dr. Lam, Neurology Office * DISCHARGE SUMMARY: DATE OF ADMISSION: 05/25/19 DATE OF DISCHARGE: 05/27/19 ATTENDING SURGEON: Dr. Miguel Fonseca.* (DICTATED BY HEENA OLVERA) HOSPITAL COURSE: Please refer to admission history and physical and operative note for details. The patient was brought to the operating room on 05/25/19 and underwent open gastrostomy feeding tube placement by Dr. Fonseca. Surgery itself was uneventful. She was initiated on tube feedings on postoperative day 1 which were well tolerated. She was doing well as of postoperative day 2 and deemed ready for discharge. Her instructions were reviewed. She will contact our office for a followup appointment in 10 days to 2 weeks for removal of buddy and sutures. She already has followup with her PCP office as well neurology office within the next week. The patient is discharged to home in good condition. HEENA OLVERA [id number]/[facility] #: [id number] MTDD
== END 2019-05-27 13:22 | disposition home or self-care (01) | DRG 57 ==
LOC: OR 13:58 → SSU 19:21 → UNDODISIN 05-27 13:22
PROVIDERS: ADMIT Surgery; ATTEND Surgery
PROC: 3E0G76Z Introduction of Nutritional Substance into Upper GI, Via Natural or Artificial Opening (ICD-10-PCS; 2019-05-25)
PROC: 0DH63UZ Insertion of Feeding Device into Stomach, Percutaneous Approach (ICD-10-PCS; principal; 2019-05-25 18:45)
DX: G12.21 Amyotrophic lateral sclerosis (principal); E46 Unspecified protein-calorie malnutrition; Z68.1 Body mass index [BMI] 19.9 or less, adult; H31.9 Unspecified disorder of choroid; G89.29 Other chronic pain; M54.9 Dorsalgia, unspecified; F32.9 Major depressive disorder, single episode, unspecified; G62.9 Polyneuropathy, unspecified; L89.159 Pressure ulcer of sacral region, unspecified stage; D69.6 Thrombocytopenia, unspecified; R29.6 Repeated falls; F41.9 Anxiety disorder, unspecified; K28.9 Gastrojejunal ulcer, unspecified as acute or chronic, without hemorrhage or perforation; Z92.21 Personal history of antineoplastic chemotherapy; Z98.84 Bariatric surgery status; Z98.51 Tubal ligation status; Z90.13 Acquired absence of bilateral breasts and nipples; Z88.2 Allergy status to sulfonamides; Z83.3 Family history of diabetes mellitus; Z80.3 Family history of malignant neoplasm of breast; Z82.49 Family history of ischemic heart disease and other diseases of the circulatory system
CPT/HCPCS: A9270-GY; J0360; J0690; J1885; J2405; J2704; J3010; J3490